=== PATIENT | male | born 1930 | race Caucasian/White ===

== ENCOUNTER → 2017-01-23 | Outpatient (CLI) | payer MEDICARE ==
[~2017-01-23] MED LIST: HYDR-3702 PO; No Home Meds; TRAM-25 PO; WALKER
[2017-01-23 08:22] LABS: BILIRUBIN,URINE Negative (Negative); CLARITY,URINE Clear; GLUCOSE, URINE (UA) Negative (Negative); LEUKOCYTE ESTERASE ,URINE Negative (Negative); PH,URINE 6.5 (5.0 - 8.0)
[2017-01-23 09:25] LABS: COLOR,URINE Dark Yellow
[2017-01-23 10:11] LABS: URINE CENTRIFUGED VOLUME 12 mL
== END ==
LOC: LAB 07:27
PROVIDERS: ATTEND Family Medicine
DX: R31.1 Benign essential microscopic hematuria (principal)
CPT/HCPCS: 81003; 81015